=== PATIENT | male | born 1965 | race Caucasian/White ===

== ENCOUNTER 2017-02-02 09:33 | Observation (INO) | payer OTHER ==
[~2017-02-02 09:33] MED LIST: AMLODIPINE-BEN1 EAC7 PO; AUGMENTIN 875-1 EAC1 PO; COLACE100 MG PO; HYDROCODON-ACE1 EAC5 PO; LUNESTA1 MG PO; MELOXICAM15 MG PO; MIRALAX17 G1 PO; NORCO 7.5-3251 EACH PO
[2017-02-02] MEDS ORDERED: AMBIEN10 M1 PO (09:48)
[2017-02-02] MEDS ORDERED: PRILOSEC10 M3 PO (09:51)
[2017-02-02 10:28] LABS: BASO % 0.2 % (0-2); EOS % 0.6 % (0-7); EOSINOPHIL ABSOLUTE COUNT 0.1 tho/cmm (0.0-0.7); HGB-HEMOGLOBIN 14.2 gm/dl (13.5-17.0); IMMATURE GRANULOCYTES ABSOLUTE 0.07 tho/cmm (0-0.03); IMMATURE GRANULOCYTES PERCENT 0.4 % (0-0.3); LYMPH % 11.8 % (20-45); LYMPH ABSOLUTE COUNT 2.1 tho/cmm (0.8-4.5); MCH (MEAN CORPUSCULAR HGB) 32.1 pg (28.0-32.0); MCHC MEAN CORPUSCULAR HGB CONC 35.5 % (32.0-36.0); MCV (MEAN CELL VOLUME) 90.5 fl (82.0-96.0); MONO % 11.1 % (0-12); MONOCYTE ABSOLUTE COUNT 1.9 tho/cmm (0.0-1.2); NEUTROPHIL ABSOLUTE COUNT 13.2 tho/cmm (1.6-8.0); NEUTROPHIL-AUTOMATED 13.2 tho/cmm (1.6-8.0); NEUTROPHILS % 75.9 % (40-80); PLATELET COUNT 423 tho/cmm (150-450); RED BLOOD COUNT 4.42 mil/cmm (4.40-5.70); RED CELL DISTRIBUTION WIDTH 12.3 % (12.4-16.4); WHITE BLOOD COUNT 17.5 tho/cmm (4.0-10.0)
[2017-02-02 10:37] LABS: ANION GAP 15 mmol/L (0-20); BLOOD UREA NITROGEN 10 mg/dl (6-24); C-REACTIVE PROTEIN 9.6 mg/dl (0-0.9); CALCIUM 9.5 mg/dl (8.5-10.5); CARBON DIOXIDE-VENOUS 25 mmol/L (22-32); CHLORIDE 104 mmol/l (96-110); CREATININE 0.89 mg/dl (0.60-1.30); GLUCOSE 96 mg/dL (70-110); SODIUM 140 mmol/L (135-145); eGFR VALUE FOR BLACK >90 mL/Min
[2017-02-03 04:55] LABS: INR 1.1 INR (0.9-1.1)
[2017-02-03 04:56] LABS: BASO % 0.2 % (0-2); EOS % 2.8 % (0-7); EOSINOPHIL ABSOLUTE COUNT 0.5 tho/cmm (0.0-0.7); HCT-HEMATOCRIT 36.5 % (36.0-53.5); HGB-HEMOGLOBIN 12.4 gm/dl (13.5-17.0); IMMATURE GRANULOCYTES PERCENT 0.6 % (0-0.3); LYMPH % 13.8 % (20-45); LYMPH ABSOLUTE COUNT 2.2 tho/cmm (0.8-4.5); MCH (MEAN CORPUSCULAR HGB) 31.1 pg (28.0-32.0); MCV (MEAN CELL VOLUME) 91.5 fl (82.0-96.0); MEAN PLATELET VOLUME 9.1 cmc (9.4-12.4); MONO % 10.7 % (0-12); MONOCYTE ABSOLUTE COUNT 1.7 tho/cmm (0.0-1.2); NEUTROPHIL ABSOLUTE COUNT 11.7 tho/cmm (1.6-8.0); NEUTROPHIL-AUTOMATED 11.7 tho/cmm (1.6-8.0); NEUTROPHILS % 71.9 % (40-80); PLATELET COUNT 380 tho/cmm (150-450); RED BLOOD COUNT 3.99 mil/cmm (4.40-5.70); RED CELL DISTRIBUTION WIDTH 12.7 % (12.4-16.4); WHITE BLOOD COUNT 16.3 tho/cmm (4.0-10.0)
[2017-02-03] MEDS ORDERED: MIRALAX17 G2 PO (11:16)
[2017-02-03] MEDS ORDERED: NORCO 5-325 TA1 EACH PO (11:18)
[2017-02-03] MEDS ORDERED: PERCOCET 5-3251 EACH PO (14:15)
== END 2017-02-03 14:45 ==
LOC: EDMED 09:33 → EMR2 13:45 → 5WE 15:06 → ORW 02-03 07:25 → PACU 02-03 08:05 → 5WE 02-03 09:05
PROVIDERS: Emergency Medicine; ADMIT Internal Medicine
PROC: 0D9Q0ZZ Drainage of Anus, Open Approach (ICD-10-PCS; principal; 2017-02-03)
DX: K61.0 Anal abscess (principal); K64.8 Other hemorrhoids; I10 Essential (primary) hypertension; K21.9 Gastro-esophageal reflux disease without esophagitis; D72.829 Elevated white blood cell count, unspecified; M75.101 Unspecified rotator cuff tear or rupture of right shoulder, not specified as traumatic; S46.201A Unspecified injury of muscle, fascia and tendon of other parts of biceps, right arm, initial encounter; Z79.899 Other long term (current) drug therapy; Z87.891 Personal history of nicotine dependence; Z98.890 Other specified postprocedural states; X58.XXXA Exposure to other specified factors, initial encounter
CPT/HCPCS: G0378; J1170; J1335; J2270; J2405; J7030

== ENCOUNTER 2017-06-28 16:08 | Emergency (ER) | payer OTHER ==
[~2017-06-28] VITALS: Ht 182.9 cm; Wt 99.0 kg
[~2017-06-28 16:08] MED LIST changes: +AMBIEN10 M1 PO; +MIRALAX17 G2 PO; +NORCO 5-325 TA1 EACH PO; +PERCOCET 5-3251 EACH PO; +PRILOSEC10 M3 PO
[2017-06-28] MEDS ORDERED: AUGMENTIN 875-1 EAC2 PO (17:27)
[2017-06-28] MEDS ORDERED: NORCO 5-325 TA1 EACH PO (17:27)
== END 2017-06-28 18:29 ==
LOC: EDMED 16:08
DX: K62.89 Other specified diseases of anus and rectum (principal); I10 Essential (primary) hypertension; Z85.46 Personal history of malignant neoplasm of prostate; Z79.899 Other long term (current) drug therapy
CPT/HCPCS: J2543; J7030